=== PATIENT | female | born 1985 | race Caucasian/White ===

== ENCOUNTER 2021-01-23 21:47 | Emergency (ER) | payer OTHER ==
[~2021-01-23] VITALS: Ht 160 cm; Wt 81.7 kg
[2021-01-24] MEDS ORDERED: LEVOFLOXACIN500 MG PO (01:58)
[2021-01-24] MEDS ORDERED: HYDROCODON-ACE1 EA10 PO (01:58)
[2021-01-24] MEDS ORDERED: ZOFRAN4 MG PO (01:58)
== END 2021-01-24 02:27 | disposition home or self-care (01) ==
LOC: ED 21:47
DX: N20.2 Calculus of kidney with calculus of ureter (principal); N39.0 Urinary tract infection, site not specified; Z88.0 Allergy status to penicillin
CPT/HCPCS: 74176; 80053; 81001; 83690; 84703; 85007; 85025; 96365; 96375; 96376; 99284-25; J0696; J1170; J1885; J2405; J7030